=== PATIENT | male | born 1965 | race Caucasian/White ===

== ENCOUNTER 2018-01-20 21:57 | Observation (INO) | payer OTHER ==
[~2018-01-20 21:57] MED LIST: ISOVUE-370 76%-LOCM 1 ML ONE
--- NOTE | 2018-01-20 22:17 | CT ---
CT OF HEAD: Indication: Stroke, left sided weakness, visual disturbance. FINDINGS: There is no acute intracranial hemorrhage, mass effect, midline shift of ventriculomegaly. Minimal mu cosal thickening is seen within the paranasal sinuses. IMPRESSION: No acute intracranial hemorrhage or mass effect. Notification to the ER physician placed at 2213 hours 3-5-18. Code CR.
[2018-01-20 22:51] LABS: #Eosinphils 0.1 thou/uL (0.0-0.7); #Monocytes 0.8 thou/uL (0.11-0.59); #Neutrophils 5.2 thou/uL (1.40-6.50); %Basophils 0.3 % (0.0-1.0); %Eosinophils 1.4 % (0.0-10.0); %Lymphocytes 14.4 % (21.0-51.0); %Monocytes 11.1 % (0.0-10.0); %Neutrophils 72.9 % (42.0-75.0); Hemoglobin 13.5 g/dL (14.0-18.0); Mean Corpuscular Hemoglobin 32.5 pg (27.0-31.0); Mean Corpuscular Volume 98.4 fl (80.0-94.0); Mean Platelet Volume 7.2 fL (7.4-10.4); Platelet Count 180 thou/uL (130-400); RBC Distribution Width 11.3 % (11.5-14.5); Red Blood Cell (RBC) Count 4.17 mill/uL (4.70-6.10); White Blood Cell (WBC) Count 7.1 thou/uL (4.8-10.8)
[2018-01-20 22:58] LABS: INR-International Normal Ratio 1.1; Prothrombin Time 14.3 SEC (12.0-14.7)
[2018-01-20 23:04] LABS: ALT (SGPT) 25 U/L (8-55); AST (SGOT) 20 U/L (5-34); Albumin 3.7 g/dL (3.5-5.0); Alkaline Phosphatase 108 U/L (40-150); Anion Gap 9 mmol/L (10-20); BUN (Urea Nitrogen) 23 mg/dL (8.9-20.6); Bilirubin, Total 0.9 mg/dL (0.2-1.2); Calc. Creatinine Clearance 0 mL/min (70-130); Calcium 8.6 mg/dL (7.8-10.44); Carbon Dioxide 27 mmol/L (22-29); Chloride 108 mmol/L (98-107); Estimated GFR-MDRD 78; Globulin 2.4 g/dL (2.4-3.5); Glucose 86 mg/dL (70-105); Potassium 3.8 mmol/L (3.5-5.1); Protein, Total 6.1 g/dL (6.0-8.3); Sodium 140 mmol/L (136-145)
[2018-01-20 23:08] LABS: CKMB 0.4 ng/mL (0-6.6); Troponin I Less than 0.010 ng/mL (< 0.028)
--- NOTE | 2018-01-20 23:18 | CT ---
CT OF BRAIN WITH 3D VOLUME RENDERING CT OF NECK WITH 3D VOLUME RENDERING CTA OF BRAIN PERFUSION EVALUATION: Clinical history: Left sided weakness, new onset, visual disturbance. FINDINGS: CTA of the head and neck reveals no high grade stenosis or occlusion of the major arterial system. Th ere is mild plaque formation without hemodynamically significant stenosis. CT of brain reveals no significant perfusion defect to indicate significant ischemia either obvious p enumbra or completed infarction. There is incidental note of partially imaged mixed density oval structure at the medial right hemitho rax with associated linear densities. This may relate to post-surgical change of the alimentary canal although it is not likely on the basis of this exam. Correlate with surgical history. There is adjac ent ground glass opacity of the medial right upper lung zone. IMPRESSION: 1. No significant arterial stenosis or occlusion of the head and neck. 2. No significant penumbra or complete infarction by CT perfusion evaluation. 3. Telephone call with findings placed to ER physician, Nando Westfall, at 2238 hours, 3-5-18.
[2018-01-21] MEDS ORDERED: Acetaminophen 500 MG TAB ONE (00:09)
[2018-01-21] MEDS ORDERED: Clopidogrel Bisulfate 75 MG TAB ONE (00:51)
[2018-01-21] MEDS ORDERED: Enoxaparin Sodium 80 MG/0.8 ML SYRINGE ONE (00:51)
[2018-01-21] MEDS ORDERED: Sodium Chloride 0.9% 1,000 ML IV SCH (02:15)
[2018-01-21] MEDS ORDERED: hydrALAZINE 20 MG/ML VIAL SLOW IVP PRN (02:32)
[2018-01-21] MEDS ORDERED: Acetaminophen 325 MG TAB PO PRN (02:32)
[2018-01-21] MEDS ORDERED: Acetaminophen 650 MG Suppository PR PRN (02:32)
[2018-01-21 02:53] VITALS: BMI 22.8
--- NOTE | 2018-01-21 03:20 | HP ---
PRIMARY CARE PROVIDER: None. CHIEF COMPLAINT: Weakness. HISTORY OF PRESENT ILLNESS: Mr. Mary is a pleasant 52-year-old gentleman who was seen at [facility] on 01/21/2018. He reports that he was taking morphine until 3 days ago for the last year or so. He stopped morphine, cold turkey. He has been going through withdrawals. Yesterday, he went to use the restroom. After that, he was watching TV with his . He had difficulty seeing the TV. His reports that he was slumped to one side, conscious, but unresponsive. He reports that he was initially weak in both arms. 911 was called and he was found to be weak on the left side. He denies any chest pain or shortness of breath. He denies any fevers or chills. He reports that he had blurriness of vision, which has resolved. He also reports that his weakness has resolved. REVIEW OF SYSTEMS: The following complete review of systems was negative, unless otherwise mentioned in the HPI or below: Constitutional: Weight loss or gain, ability to conduct usual activities. Skin: Rash, itching. Eyes: Double vision, pain. ENT/Mouth: Nose bleeding, neck stiffness, pain, tenderness. Cardiovascular: Palpitations, dyspnea on exertion, orthopnea. Respiratory: Shortness of breath, wheezing, cough, hemoptysis, fever or night sweats. Gastrointestinal: Poor appetite, abdominal pain, heartburn, nausea, vomiting, constipation, or diarrhea. Genitourinary: Urgency, frequency, dysuria, nocturia. Musculoskeletal: Pain, swelling. Neurologic/Psychiatric: Anxiety, depression. Allergy/Immunologic: Skin rash, bleeding tendency. PAST MEDICAL HISTORY: Significant for esophageal cancer. PAST SURGICAL HISTORY: Significant for esophagectomy, carpal tunnel surgery, vasectomy, hernia surgery, and cholecystectomy. PSYCHIATRIC HISTORY: Depression. SOCIAL HISTORY: The patient is an ex-smoker. He denies alcohol use or recreational drug use. ALLERGIES: NONSTEROIDAL ANTI-INFLAMMATORY AGENTS. He describes anaphylaxis with ASPIRIN use. CURRENT MEDICATIONS: Include duloxetine 60 mg daily, Lyrica 100 mg 3 times a day. FAMILY HISTORY: No family history of premature coronary artery disease. PHYSICAL EXAMINATION: GENERAL: Mr. Mary is awake and alert, not in acute distress. VITAL SIGNS: Blood pressure is 114/70, pulse is 68. His breathing at rate of 18 and saturating 99% on room air. Temperature is 99.2 degrees Fahrenheit. EYES: No scleral icterus. No conjunctival pallor. ENT: Moist mucosal membranes. No oropharyngeal erythema or exudates. NECK: Supple, nontender, normal range of movement. Trachea is midline. RESPIRATORY: Accessory muscles of breathing are not active. Chest wall movements are symmetric bilaterally. LUNGS: Clear to auscultation without wheeze, rhonchi, or crepitations. CARDIOVASCULAR: S1 and S2 are heard, regular. LUNGS: Peripheral pulses palpable. No carotid bruit, no pericardial rub. ABDOMEN: Soft, nontender, bowel sounds heard. No hepatomegaly, no splenomegaly. NEUROLOGIC: Cranial nerves II through XII intact. No focal motor or sensory deficits. Power is 5/5 in all 4 extremities. Deep tendon reflexes are 2+, plantar reflexes downgoing bilaterally. Cerebellar exam unremarkable. MUSCULOSKELETAL: Power in the 4 extremities as described above. SKIN: No rashes or subcutaneous nodules. LYMPHATIC: No cervical lymphadenopathy. PSYCHIATRIC: Normal mood, normal affect, patient is oriented to person, place, and time. LABORATORY DATA: Mr. Mary's labs and investigations were reviewed. He had an electrocardiogram, which showed normal sinus rhythm, no ST changes to suggest an acute coronary artery syndrome. He also had CT scan of the brain, noncontrast, which did not show any acute intracranial abnormality. CT angiogram of the brain and neck did not show any significant arterial stenosis or occlusion of the head and neck. He has normal white count, macrocytic anemia with hemoglobin 13.5, normal platelet count, INR 1.1, normal sodium, normal potassium, elevated blood urea nitrogen of 23, normal creatinine and normal liver profile. Troponin I is normal. ASSESSMENT AND PLAN: Mr. Mary is a pleasant 52-year-old gentleman who was seen at [facility] on 01/21/2018. His problem list includes: 1. Weakness: Going by the description of left-sided weakness when EMS arrived , it is possible that Mr. Mary had transient ischemic attack. 2. Transient ischemic attack: Suspected. We will start patient on Plavix, given his history of allergy to ASPIRIN. We will check 2D echocardiogram. We will consult Neurology Service. 3. History of esophageal cancer, status post surgery and chemotherapy. Appears to be stable. Many thanks for allowing me to participate in Mr. Mary's care. LEVEL OF RISK: Moderate. LEVEL OF COMPLEXITY: Moderate. MTDD
[2018-01-21 05:44] LABS: #Eosinphils 0.1 thou/uL (0.0-0.7); #Lymphocytes 1.9 thou/uL (1.20-3.40); #Monocytes 0.6 thou/uL (0.11-0.59); #Neutrophils 3.6 thou/uL (1.40-6.50); %Basophils 0.1 % (0.0-1.0); %Eosinophils 1.9 % (0.0-10.0); %Lymphocytes 30.6 % (21.0-51.0); %Monocytes 9.5 % (0.0-10.0); %Neutrophils 57.9 % (42.0-75.0); Hemoglobin 13.7 g/dL (14.0-18.0); Mean Corpuscular HGB CONC 33.6 g/dL (32.0-36.0); Mean Corpuscular Hemoglobin 32.2 pg (27.0-31.0); Mean Corpuscular Volume 95.7 fl (80.0-94.0); Mean Platelet Volume 7.5 fL (7.4-10.4); Platelet Count 180 thou/uL (130-400); RBC Distribution Width 11.4 % (11.5-14.5); Red Blood Cell (RBC) Count 4.24 mill/uL (4.70-6.10); White Blood Cell (WBC) Count 6.2 thou/uL (4.8-10.8)
[2018-01-21 06:05] LABS: Anion Gap 12 mmol/L (10-20); BUN (Urea Nitrogen) 21 mg/dL (8.9-20.6); Calc. Creatinine Clearance 109 mL/min (70-130); Calcium 8.9 mg/dL (7.8-10.44); Carbon Dioxide 25 mmol/L (22-29); Cardiac Risk 2.9 (Less than 4.5); Chloride 109 mmol/L (98-107); Cholesterol 126 mg/dl (< 200 Desired); Estimated GFR-MDRD Greater than 90; Glucose 92 mg/dL (70-105); HDL Cholesterol 43 mg/dL (>60 Neg Risk); LDL Cholesterol, Calculated 70 mg/dL; Potassium 3.7 mmol/L (3.5-5.1); Sodium 142 mmol/L (136-145); Triglycerides 66 mg/dL (Less than 150)
[2018-01-21] MEDS ORDERED: Clopidogrel Bisulfate 75 MG TAB PO SCH (09:00)
[2018-01-21] MEDS ORDERED: Enoxaparin Sodium 40 MG/0.4 ML SYRINGE SC SCH (09:00)
[2018-01-21] MEDS ORDERED: FLU VACC QS2017-18 36 mo. & older 0.5 ML SYRINGE IM ONE (09:00)
[2018-01-21] MEDS ORDERED: Acetaminophen 500 MG TAB PO PRN (11:15)
[2018-01-21] MEDS ORDERED: Lidocaine 4% Topical Sol 50 ML BOT TOP SCH ×2 (13:15→21:00)
[2018-01-21] MEDS ORDERED: Pregabalin 50 MG CAP PO SCH ×2 (13:15→21:00)
[2018-01-21] MEDS ORDERED: Lidocaine 2% Jelly 5 ML TUBE TOP SCH ×2 (14:30→21:00)
--- NOTE | 2018-01-21 15:53 | MRI ---
MRI BRAIN WITHOUT CONTRAST: Date: 01/21/18 Multiplanar, multisequential imaging of brain obtained. HISTORY: TIA. Left-sided weakness. FINDINGS: Ventricles have normal size and position. No evidence of restricted diffusion. There is no evidence o f acute or subacute infarct. No significant white matter abnormality. No mass or edema. No evidence o f hemorrhage. Intracranial internal carotid arteries, vertebral arteries, and basilar arteries show flow-voids. Dur al venous sinuses appear patent. Paranasal sinuses appear clear. IMPRESSION: Unremarkable MRI of brain. No evidence of acute or subacute infarct identified. POS: [facility]
[2018-01-21 16:08] VITALS: BP 120/64; TEMP 97.9
--- NOTE | 2018-01-21 20:43 | CON ---
DATE OF CONSULTATION: 01/21/2018 CONSULTING PHYSICIAN: Hospitalist. IMPRESSION: Syncopal episode, likely secondary to morphine withdrawal. PLAN: The patient can be discharged home at your discretion. HISTORY OF PRESENT ILLNESS: Mr. Mary is a 52-year-old gentleman who has had a history of esophageal cancer. He has had some chronic pain related to rib injury from his prior surgery. He has been on morphine for about a year. 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 He decided a few days ago to just stop morphine cold . He has been going through withdrawals for the last few days, he had been having diarrhea and diaphoresis. He had gone to the bathroom and was headed back into the den, he started to have a fading out of his vision. He made it to a sitting pos ition and stayed there. His noted that he was very limitedly responsive. EMS arrived and he wa s brought into the hospital. He regained consciousness in the ambulance. There was no lateralized w eakness or numbness. It was noted that he was quite pale and his color returned as he regained aware ness. He had a CTA on admission to the emergency room. Nothing remarkable was found. His lab work was all in normal range. He has since had an MRI of the brain, which was unremarkable. He has not h ad any other syncopal episodes in the past. There is no history of seizures. ALLERGIES: NONSTEROIDALS. MEDICATIONS: List included morphine, Cymbalta, and Lyrica. SOCIAL HISTORY: No tobacco or alcohol use. FAMILY HISTORY: Noncontributory. REVIEW OF SYSTEMS: Otherwise, negative for headache, nausea, vomiting, vertigo, tremors or restlessn ess. PHYSICAL EXAMINATION: GENERAL: He is a healthy appearing middle-aged man, sitting up in the bed, in no acute distress. VITAL SIGNS: Blood pressure 120/64, pulse 64, respirations 18, temperature 97.9. HEENT: All in normal range. NEUROLOGIC: He is alert and appropriate. His speech is fluent and clear. Cranial nerves are intact . Motor exam shows no focal deficits. He does not have any tremor or restlessness. He has diminish ed sensation in his feet in a stocking distribution. LABORATORY STUDIES: Unremarkable CBC, coags, and chemistry panel. SUMMARY: Middle-aged man who has been going through withdrawals from his morphine. He had a syncopa l event while sitting up, which I think prolonged the duration of his symptoms. His workup neurologi luiza has been otherwise unremarkable. I do not see anything further that needs to be done. He can be discharged home at your discretion.
[2018-01-21] MEDS ORDERED: Atorvastatin Calcium 10 MG TAB PO SCH (21:00)
[2018-01-21] MEDS ORDERED: Lidocaine 4% Cream 5 GM TUBE w/ Tegaderm TOP SCH (21:00)
[2018-01-22] MEDS ORDERED: DULoxetine 60 MG CAP PO SCH (09:00)
--- NOTE | 2018-01-22 14:25 | DIS ---
DATE OF ADMISSION: 01/21/2018 DATE OF DISCHARGE: 01/21/2018 DISCHARGE DIAGNOSIS: Transient ischemic attack. SECONDARY DIAGNOSIS: History of severe esophageal cancer. HISTORY OF PRESENT ILLNESS/HOSPITAL COURSE: Mr. Mary is a 52-year-old man who presented to the [facility] room with extremity weakness. He reports he was taking morphine for 3 days before presenting a nd stopped cold turkey and went through some withdrawal. The day before he presented, he went to use the restroom and while watching television, he had difficulty seeing the screen. His then repo rted that he slumped to one side, was conscious, but not really responsive. Also, he had weakness in his bilateral upper extremities. They called 911 and he was then found to be weak on the left side. He denied chest pain, shortness of breath, fever or chills. He had some blurry vision which eventu ally resolved. At the emergency room, his labs were largely unremarkable. EKG showed normal sinus r hythm with no signs of acute ischemia. He had a CT scan of the brain without contrast, which did not show any intracranial abnormality. A CT angiogram of the brain and neck also did not show any signi ficant arterial stenosis or occlusion of the head and neck. His INR was normal and labs were largely unremarkable. Troponin was trended down to normal. He was then admitted for possible ischemic stro ke/TIA. While in the hospital, it was further investigated with an MRI of the brain done which showe d no evidence of acute or subacute infarct. He was also reviewed by Neurology and the assessment was no further investigation needs to be done and the patient could be discharged. Before he left, his symptoms had resolved and he was able to ambulate freely. DISCHARGE MEDICATIONS: Atorvastatin 10 mg at bedtime, Plavix 75 mg daily, acetaminophen 1000 mg ever y 4 hours as needed, morphine extended release 15 mg p.o. twice daily (the patient states he stopped taking medications two days before presenting), pregabalin 20 mg twice a day, duloxetine 60 mg daily, lidocaine 5% ointment apply topically twice a day. CONSULT: Neurology. PHYSICAL EXAMINATION: For a full physical examination, refer to today's history and physical. IMAGING: As stated in hospital course. CONDITION AT DISCHARGE: Stable and improved. PROCEDURES: None apart from imaging stated as above. DIET: Regular. CARE GOALS: He is to follow up with his primary care physician within 1 week of discharge. He is to ld to return to the emergency room if he experiences similar symptoms, chest pain, shortness of breat h, loss of consciousness or extremity weakness. ACTIVITY: To resume as tolerated. Discharge time 65 minutes including chart review and documentation.
--- NOTE | 2018-01-25 19:03 | EKG ---
Test Reason : STROKE Blood Pressure : / mmHG Vent. Rate : 069 BPM Atrial Rate : 069 BPM P-R Int : 128 ms QRS Dur : 086 ms QT Int : 386 ms P-R-T Axes : -30 045 018 degrees QTc Int : 413 ms Unusual P axis, possible ectopic atrial rhythm Abnormal ECG Confirmed by ARLEEN RAY, ROCÍO ([id number]), loan expeditor CRIS ZIMMER ([id number]) on 01/25/2018 7:02:26 PM Referred By: Confirmed By:ROCÍO BACON MD
== END 2018-01-21 18:29 | disposition home or self-care (01) ==
LOC: ERS 21:57 → 2SE 01-21 00:26
PROVIDERS: ADMIT Internal Medicine; ATTEND Internal Medicine
DX: G45.9 Transient cerebral ischemic attack, unspecified (principal); G62.89 Other specified polyneuropathies; G89.29 Other chronic pain; F32.9 Major depressive disorder, single episode, unspecified; Z88.6 Allergy status to analgesic agent; Z88.8 Allergy status to other drugs, medicaments and biological substances; Z79.899 Other long term (current) drug therapy; Z90.49 Acquired absence of other specified parts of digestive tract; Z98.890 Other specified postprocedural states; Z85.01 Personal history of malignant neoplasm of esophagus; Z92.21 Personal history of antineoplastic chemotherapy; Z87.891 Personal history of nicotine dependence
CPT/HCPCS: 0042T; 36415; 36416; 70450; 70496; 70498; 70551; 80048; 80053; 80061; 82553; 84484; 85025; 85610; 85730; 90471; 90682; 93005; 96372; G0008; G0378; J1650; J2001; Q2036

== ENCOUNTER 2018-11-17 11:34 | Emergency (ER) | payer OTHER ==
[2018-11-17 12:51] LABS: AST (SGOT) 28 U/L (5-34); Albumin Less than 1.0 g/dL (3.5-5.0); Anion Gap 18 mmol/L (10-20); Bilirubin, Total 2.4 mg/dL (0.2-1.2); Calc. Creatinine Clearance 0 mL/min (70-130); Calcium 8.3 mg/dL (7.8-10.44); Carbon Dioxide 15 mmol/L (22-29); Chloride 109 mmol/L (98-107); Estimated GFR-MDRD Greater than 90; Globulin 5.8 g/dL (2.4-3.5); Potassium 4.6 mmol/L (3.5-5.1); Protein, Total 6.8 g/dL (6.0-8.3); Sodium 137 mmol/L (136-145)
[2018-11-17 12:52] LABS: BUN (Urea Nitrogen) 4 mg/dL (8.4-25.7)
[2018-11-17] MEDS ORDERED: Acetaminophen 325 MG TAB ONE (13:03)
[2018-11-17 13:11] LABS: #Lymphocytes 0.3 thou/uL (1.20-3.40); #Monocytes 0.6 thou/uL (0.11-0.59); #Neutrophils 11.3 thou/uL (1.40-6.50); %Basophils 0.1 % (0.0-1.0); %Eosinophils 0.2 % (0.0-10.0); %Lymphocytes 2.2 % (21.0-51.0); %Monocytes 5.3 % (0.0-10.0); %Neutrophils 92.3 % (42.0-75.0); Hemoglobin 15.3 g/dL (14.0-18.0); Mean Corpuscular HGB CONC 33.6 g/dL (32.0-36.0); Mean Corpuscular Hemoglobin 32.3 pg (27.0-31.0); Mean Corpuscular Volume 96.1 fL (78.0-98.0); Mean Platelet Volume 7.5 fL (7.4-10.4); Platelet Count 186 thou/uL (130-400); RBC Distribution Width 11.2 % (11.5-14.5); Red Blood Cell (RBC) Count 4.73 mill/uL (4.70-6.10); White Blood Cell (WBC) Count 12.2 thou/uL (4.8-10.8)
--- NOTE | 2018-11-17 13:33 | CT ---
CT BRAIN: DATE: 11/17/2018. PROVIDED CLINICAL HISTORY: Syncope. FINDINGS: Comparison 01/20/2018. The ventricular system appears normal in size and morphology. There is no evidence for intracranial hemorrhage or mass effect. The extracranial soft tissues and osseous structures demonstrate an unrem arkable CT appearance. IMPRESSION: No evidence for intracranial hemorrhage or mass effect. POS: [facility]
--- NOTE | 2018-11-17 13:34 | CT ---
CT FACIAL BONES: DATE: 11/17/2018. PROVIDED CLINICAL HISTORY: Facial pain status post injury. FINDINGS: There is no evidence for a fracture. The globes and other orbital contents appear normal. Paranasal sinuses demonstrate no significant opacity. IMPRESSION: No evidence for a fracture. POS: [facility]
[2018-11-17] MEDS ORDERED: Lidocaine 1% (PF) 30 ML VIAL ONE (13:46)
[2018-11-17 14:20] LABS: Glucose 21 mg/dL (70-105)
--- NOTE | 2018-11-17 14:43 | RAD ---
LEFT HAND RADIOGRAPHS 3 VIEWS: FARZANA: 11/17/2018. PROVIDED CLINICAL HISTORY: Left hand pain status post injury. FINDINGS: There is no evidence for a fracture or other acute osseous abnormality. If there is persistent clini matheus concern, conservative management and followup imaging are advised. IMPRESSION: As above. POS: [facility]
--- NOTE | 2018-11-17 14:47 | RAD ---
LEFT HIP RADIOGRAPHS 2 VIEWS: DATE: 11/17/2018. PROVIDED CLINICAL HISTORY: Pain status post injury. FINDINGS: No evidence for a fracture or other acute osseous abnormality. If there is persistent clinical lizzy rn, conservative management and followup imaging advised. IMPRESSION: As above. POS: [facility]
--- NOTE | 2018-11-17 14:48 | RAD ---
PELVIC RADIOGRAPH: DATE: 11/17/2018. PROVIDED CLINICAL HISTORY: Pelvic pain status post injury. FINDINGS: No evidence for a fracture or other acute osseous abnormality. If there is persistent clinical lizzy rn, conservative management and followup imaging advised. IMPRESSION: As above. POS: [facility]
[2018-11-17 14:50] LABS: ALT (SGPT) 31 U/L (8-55); Alkaline Phosphatase 112 U/L (40-150)
[2018-11-17 16:00] LABS: Anion Gap 13 mmol/L (10-20); BUN (Urea Nitrogen) 21 mg/dL (8.4-25.7); Calc. Creatinine Clearance 0 mL/min (70-130); Calcium 8.1 mg/dL (7.8-10.44); Carbon Dioxide 20 mmol/L (22-29); Chloride 110 mmol/L (98-107); Estimated GFR-MDRD Greater than 90; Glucose 102 mg/dL (70-105); Potassium 3.9 mmol/L (3.5-5.1); Sodium 139 mmol/L (136-145)
== END 2018-11-17 16:20 | disposition home or self-care (01) ==
LOC: ERS 11:34
DX: T40.601A Poisoning by unspecified narcotics, accidental (unintentional), initial encounter (principal); S01.81XA Laceration without foreign body of other part of head, initial encounter; E86.0 Dehydration; R55 Syncope and collapse; F32.9 Major depressive disorder, single episode, unspecified; Z87.891 Personal history of nicotine dependence; X58.XXXA Exposure to other specified factors, initial encounter
CPT/HCPCS: 12013; 36415; 36416; 70450; 70486; 72170; 80053; 85025; 93005; 96360; 96361; J2001

== ENCOUNTER 2019-03-31 05:59 | Outpatient (CLI) | payer OTHER ==
[2019-03-31 10:39] LABS: Mean Corpuscular HGB CONC 34.5 g/dL (32.0-36.0); Mean Corpuscular Hemoglobin 32.5 pg (27.0-31.0); Mean Corpuscular Volume 94.2 fL (78.0-98.0); Mean Platelet Volume 7.4 fL (7.4-10.4); Platelet Count 245 thou/uL (130-400); Red Blood Cell (RBC) Count 4.63 mill/uL (4.70-6.10); White Blood Cell (WBC) Count 6.2 thou/uL (4.8-10.8)
[2019-03-31 10:41] LABS: Bilirubin Small (Negative); Blood, Urine Negative (Negative); Clarity CLEAR (Clear); Glucose, Urine (Dipstick) 100 mg/dL (Negative); Leukocyte Negative (Negative); Nitrite Negative (Negative); Protein, Urine (Dipstick) 30 mg/dL (Neg-Trace); Specific Gravity, Urine 1.043 (1.002-1.036); Urobilinogen 0.2 mg/dL (0.2-1.0)
[2019-03-31 10:43] LABS: Bacteria/HPF None Seen HPF (None Seen); Hyaline Casts/LPF 7-10 HYALINE CAST LPF (0-3 Hyaline); Pathc Cast-AUWi Flag 0.95 (0-2.49); Squamous Epithelial 0-3 HPF (0-3)
[2019-03-31 10:48] LABS: PTT 27.1 SEC (22.9-36.1); Prothrombin Time 13.5 SEC (12.0-14.7)
[2019-03-31 10:59] LABS: Anion Gap 12 mmol/L (10-20); BUN (Urea Nitrogen) 24 mg/dL (8.4-25.7); Calc. Creatinine Clearance 0 mL/min (70-130); Calcium 8.9 mg/dL (7.8-10.44); Carbon Dioxide 25 mmol/L (22-29); Chloride 107 mmol/L (98-107); Estimated GFR-MDRD 79; Glucose 61 mg/dL (70-105); Potassium 3.7 mmol/L (3.5-5.1); Sodium 140 mmol/L (136-145)
--- NOTE | 2019-03-31 16:57 | EKG ---
Test Reason : Blood Pressure : / mmHG Vent. Rate : 093 BPM Atrial Rate : 093 BPM P-R Int : 134 ms QRS Dur : 084 ms QT Int : 350 ms P-R-T Axes : 060 091 022 degrees QTc Int : 435 ms Normal sinus rhythm Rightward axis Borderline ECG When compared with ECG of 17-NOV-2018 11:42, No significant change was found Confirmed by DR. [place] CARLOS ([id number]) on 03/31/2019 4:56:25 PM Referred By: HAY Confirmed By:DR. India CARLOS
== END 2019-03-31 06:00 | disposition home or self-care (01) ==
LOC: LABBT 05:59
PROVIDERS: ATTEND Urology
DX: Z01.818 Encounter for other preprocedural examination (principal); N48.6 Induration penis plastica
CPT/HCPCS: 80048; 81001; 85027; 85610; 85730; 87086; 93005; 93010

== ENCOUNTER 2019-04-09 05:55 | Day surgery (SDC) | payer OTHER ==
[2019-03-31 10:27] VITALS: BMI 22.2
[2019-04-09] MEDS ORDERED: CEFAZOLIN 1 GM VIAL ONE (06:22)
[2019-04-09] MEDS ORDERED: Sodium Chloride 0.9% 100 ML ONE (06:22)
[2019-04-09] MEDS ORDERED: Bupivacaine 0.25% HCL 30 ML VIAL ONE (06:39)
[2019-04-09] MEDS ORDERED: Neomycin-Polymyxin 1 ML AMP ONE (06:39)
[2019-04-09] MEDS ORDERED: Sodium Chloride 0.9% 10 ML ONE (06:43)
[2019-04-09] MEDS ORDERED: Bacitracin Zinc Ointment 30 gm TUBE ONE (07:05)
[2019-04-09] MEDS ORDERED: HYDROcodone/Acetaminophen 5/325 mg Tablet ONE (12:07)
--- NOTE | 2019-04-09 15:49 | OP ---
DATE OF PROCEDURE: 04/09/2019 SERVICE: Urology. PREOPERATIVE DIAGNOSIS: Peyronie disease. POSTOPERATIVE DIAGNOSIS: Peyronie disease. PROCEDURE PERFORMED: Peyronie penile plication. INDICATION FOR PROCEDURE: Mr. Mary is a 53-year-old white male, who presented to me with angulation of the penis. After stabilization of curvature, he ended up with a 70-80 degree dorsal curvature. He was not happy with this and desired correction. Risks and benefits of Peyronie's plication were discussed and he has agreed to proceed forward. DESCRIPTION OF PROCEDURE: After identification of armband and verification of consent, the patient was brought to the operating room. He underwent general anesthesia with an LMA. He was prepped and draped in usual sterile fashion. After appropriate time-out, a dorsal penile nerve block was performed with 10 mL of 0.25% Marcaine plain. The Booth catheter was introduced into the bladder and the bladder drained and the Booth was clamped off. Incision was initially made on the ventral aspect of the penis over the site of maximal angulation. An artificial erection was performed with a tourniquet to identify the maximum point of angulation prior to the incision being made. Incision was carried down through the skin and through the dartos fascia using Bovie electrocautery, elevated over the urethra. Urethral tissues were then exposed and the dissection of the dartos was carried out laterally until the corpora cavernosum could be seen on both sides. Hemostasis was performed gently with bipolar cautery of any minor bleeding vessels. Once the field was fully exposed, another artificial erection was performed and again the maximal site of angulation was noted on the contralateral side. On the ventral aspect of the penis, the 16 dot plications were marked to correct the penis' angulation. 3-0 Vicryl sutures were placed through the previously marked plication points and after all sutures were placed, they were tied down. Repeat erection demonstrated complete resolution of the upward curvature but there was a minor left-sided curvature. One additional plication stitch was placed on the right lateral aspect of the penis gently to remove the curvature towards the left, which then resulted in a completely straight penis with erection. Satisfied, the patient should have a good cosmetic outcome. There appeared to be very minimal shortening of the penis. The tourniquet was removed and the edema removed from the penis. All the excessive suture material was trimmed and hemostasis was confirmed. The dartos was then reapproximated using a 3-0 Vicryl in a running fashion. The skin closed with a 4-0 Monocryl. Dermabond was applied. Once dry, a gentle Coban dressing was applied without excessive compression to avoid urinary retention or penile ischemia. The catheter was removed. The patient was then awakened, taken to PACU for recovery in stable condition. COMPLICATIONS: None. ESTIMATED BLOOD LOSS: Minimal. RETAINED TUBES AND DRAINS: None. SPECIMENS: None. DISPOSITION: The patient will be discharged home and follow up with me in approximately 1 to 2 weeks for postoperative check. Job ID: [id number]
== END 2019-04-09 12:30 | disposition home or self-care (01) ==
LOC: SDC 05:55 → EDSTATUS 10:00 → SDC 12:30
PROVIDERS: ATTEND Urology
PROC: 0VQS0ZZ Repair Penis, Open Approach (ICD-10-PCS; principal; 2019-04-09)
DX: N48.6 Induration penis plastica (principal); M19.90 Unspecified osteoarthritis, unspecified site; J30.9 Allergic rhinitis, unspecified; Z79.899 Other long term (current) drug therapy; Z88.6 Allergy status to analgesic agent; Z88.8 Allergy status to other drugs, medicaments and biological substances
CPT/HCPCS: J0690; J3490; S0020

== ENCOUNTER 2019-05-27 13:36 | Emergency (ER) | payer OTHER ==
[2019-05-27 14:33] LABS: #Eosinphils 0.1 thou/uL (0.0-0.7); #Monocytes 0.8 thou/uL (0.11-0.59); #Neutrophils 8.5 thou/uL (1.40-6.50); %Basophils 0.1 % (0.0-1.0); %Eosinophils 0.7 % (0.0-10.0); %Lymphocytes 9.3 % (21.0-51.0); %Monocytes 7.8 % (0.0-10.0); %Neutrophils 82.1 % (42.0-75.0); Mean Corpuscular HGB CONC 32.2 g/dL (32.0-36.0); Mean Corpuscular Hemoglobin 30.6 pg (27.0-31.0); Mean Corpuscular Volume 95.2 fL (78.0-98.0); Mean Platelet Volume 7.2 fL (7.4-10.4); Platelet Count 207 thou/uL (130-400); RBC Distribution Width 11.4 % (11.5-14.5); Red Blood Cell (RBC) Count 4.92 mill/uL (4.70-6.10); White Blood Cell (WBC) Count 10.3 thou/uL (4.8-10.8)
[2019-05-27 14:40] LABS: Bilirubin Negative (Negative); Blood, Urine Negative (Negative); Glucose, Urine (Dipstick) Negative (Negative); Leukocyte Negative (Negative); Nitrite Negative (Negative); Protein, Urine (Dipstick) Negative (Neg-Trace); Urobilinogen 0.2 mg/dL (Less than 2)
[2019-05-27 14:43] LABS: Clarity Clear (Clear)
[2019-05-27 14:49] LABS: Bacteria/HPF None Seen HPF (None Seen); RBC/HPF None Seen HPF (0-3); Squamous Epithelial None Seen HPF (0-3); WBC/HPF None Seen HPF (0-3)
[2019-05-27 15:00] LABS: ALT (SGPT) 26 U/L (8-55); AST (SGOT) 22 U/L (5-34); Albumin 4.2 g/dL (3.5-5.0); Alkaline Phosphatase 113 U/L (40-150); Anion Gap 13 mmol/L (10-20); BUN (Urea Nitrogen) 25 mg/dL (8.4-25.7); Calc. Creatinine Clearance 0 mL/min (70-130); Calcium 9.1 mg/dL (7.8-10.44); Carbon Dioxide 27 mmol/L (22-29); Chloride 101 mmol/L (98-107); Estimated GFR-MDRD 54; Globulin 2.6 g/dL (2.4-3.5); Glucose 92 mg/dL (70-105); Potassium 3.9 mmol/L (3.5-5.1); Protein, Total 6.8 g/dL (6.0-8.3); Sodium 137 mmol/L (136-145)
--- NOTE | 2019-05-27 15:09 | CT ---
CT ABDOMEN AND PELVIS WITHOUT CONTRAST: Multiple axial tomograms were obtained through the abdomen and pelvis without IV enhancement. INDICATION: Left flank pain. History of kidney stones. COMPARISON: There are no comparison studies. FINDINGS: Images through the lung bases reveal a fixed diaphragmatic hernia with a portion of the stomach above the diaphragm. There appear to be postoperative changes at the gastroesophageal junction and the st omach is small, possibly representing prior procedure. Recommend clinical correlation. There appear s to be mural thickening in the lower esophagus and this should be further evaluated with endoscopy. Liver, spleen, and pancreas unremarkable given the limitations of an unenhanced study. Adrenal glands normal. Review of the kidneys shows mild left hydronephrosis. Mild columning of the left ureter. There is a tiny calculus in the distal left ureter just proximal to the UVJ measuring in the 3 mm range. No calculus is seen in the right urinary system. Small bowel loops are normal caliber. IMPRESSION: 1. A 3 mm calculus distal left ureter producing mild obstructive change. 2. Fixed diaphragmatic hernia with evidence of postoperative changes at the stomach and the distal e sophagus. There is evidence of mural thickening. Recommend GI consultation and endoscopy to evaluat e the lower esophagus and stomach. POS: [facility]
[2019-05-27] MEDS ORDERED: Morphine 4 MG/ML VIAL ONE ×2 (15:48→17:48)
[2019-05-27] MEDS ORDERED: Ondansetron PF 4 MG/2 ML Vial ONE (15:49)
== END 2019-05-27 18:12 | disposition home or self-care (01) ==
LOC: ERS 13:36
DX: N13.2 Hydronephrosis with renal and ureteral calculous obstruction (principal); F32.9 Major depressive disorder, single episode, unspecified; Z79.891 Long term (current) use of opiate analgesic
CPT/HCPCS: 36415; 74176; 80053; 81003; 85025; 96361; 96374; 96375; 96376; J2270; J2405

== ENCOUNTER 2019-06-23 10:07 | Outpatient (CLI) | payer OTHER ==
[2019-06-23 11:31] LABS: Bacteria/HPF None Seen HPF (None Seen); Bilirubin Negative (Negative); Blood, Urine 1+ (Negative); Calcium Oxalate Crystals Rare HPF (None Seen); Clarity Clear (Clear); Glucose, Urine (Dipstick) 300 mg/dL (Negative); Leukocyte Negative Leu/uL (Negative); Nitrite Negative (Negative); Protein, Urine (Dipstick) 20 mg/dL (Neg-Trace); Squamous Epithelial 0-3 HPF (0-3); Urobilinogen Normal mg/dL (Less than 2); WBC/HPF 0-3 HPF (0-3)
--- NOTE | 2019-06-23 18:55 | EKG ---
Test Reason : Blood Pressure : / mmHG Vent. Rate : 066 BPM Atrial Rate : 066 BPM P-R Int : 134 ms QRS Dur : 084 ms QT Int : 392 ms P-R-T Axes : 060 084 055 degrees QTc Int : 410 ms Normal sinus rhythm Cannot rule out Anterior infarct , age undetermined Abnormal ECG When compared with ECG of 31-MAR-2019 10:19, No significant change was found Confirmed by MIKEY RAY, . SSteph ([id number]) on 06/23/2019 6:55:20 PM Referred By: HAY Confirmed By:DR. Luisana JENSEN MD
== END 2019-06-23 10:08 | disposition home or self-care (01) ==
LOC: LABBT 10:07
PROVIDERS: ATTEND Urology
DX: Z01.818 Encounter for other preprocedural examination (principal); N40.1 Benign prostatic hyperplasia with lower urinary tract symptoms
CPT/HCPCS: 81001; 87086; 93005; 93010

== ENCOUNTER 2019-06-25 11:23 | Day surgery (SDC) | payer OTHER ==
[2019-06-23 10:18] VITALS: BMI 21.5
[2019-06-25] MEDS ORDERED: Levofloxacin 500 mg/D5W 100 ml Premix Bag ONE (12:12)
[2019-06-25] MEDS ORDERED: Fentanyl 100 MCG/2 ML VIAL ONE ×2 (14:18→15:39)
[2019-06-25] MEDS ORDERED: Midazolam HCl 2 mg/2 ml Vial ONE (14:18)
--- NOTE | 2019-06-25 21:25 | OP ---
DATE OF PROCEDURE: 06/25/2019 SERVICE: Urology. PREOPERATIVE DIAGNOSIS: Left ureteral stone. POSTOPERATIVE DIAGNOSIS: Left ureteral stone. PROCEDURES PERFORMED: Left ureteroscopy, laser lithotripsy, basket extraction of stone, and placement of a 6 x 26 double-J stent. INDICATIONS FOR PROCEDURE: Mr. Mary is a 53-year-old white male, who previously had seen me for Peyronie disease. We had performed a Peyronie's plication, but in the postoperative period, he ended up having left flank pain. A CT demonstrated a distal left ureteral stone. He attempted at trial of passage, but after a month, the stone has not passed. He has elected to undergo ureteroscopy and removal of the stone. Risks and benefits have been discussed, and he has agreed to proceed forward. DESCRIPTION OF PROCEDURE: After identification of armband and verification of consent, the patient was brought back to the operating room, where he underwent general anesthesia with LMA. He was then placed in dorsal lithotomy position and prepped and draped in usual sterile fashion. After appropriate time-out, a lubricated 22-[place] rigid cystoscope was introduced per urethra into the bladder, and attention was turned toward the left ureteral orifice. There were no obvious mucosal abnormalities noted within the bladder. The left ureteral orifice was cannulated with a 0.035 Sensor wire up to the level of the renal pelvis. The cystoscope was used to empty the bladder and then removed. The Sensor wire was affixed to the drapes as a safety wire. A semi-rigid ureteroscope was then passed alongside the Sensor wire back into the bladder, and using a 1.9-[place] Zero Tip Nitinol basket to guide entry into the ureteral orifice, we were able to gain entry. The distal ureter was fairly tight and had to be gently dilated using the ureteroscope. Once we were past the dilated section, the ureter opened up quite widely, at which point, the stone was encountered. This would explain why the stone did not pass. The patient likely has a mild distal ureteral stricture. The stone was too big to be able to just simply pull out, so the basket was removed, and a 365-micron laser fiber was used to break the stone in approximately 2 to 3 pieces. The two dominant fragments were removed using basket extraction with a 1.9-[place] Zero Tip Nitinol basket. Repeat ureteroscopy back into the ureter did not demonstrate any additional fragments. The remaining 1 to 2 pieces probably came out on their own after the ureteroscope was removed for the 2 larger fragments. Ureteroscopy was performed all the way up to the mid ureter, and no additional stone fragments were found. Satisfied, the ureteroscope was removed, and the cystoscope was backloaded over the wire back into the bladder. A 6 x 26 double-J stent with a string attached was advanced over the Sensor wire up to the level of the renal pelvis. The wire was removed leaving a good curl in the kidney and a good curl in the bladder. The bladder was then emptied, and the cystoscope was removed. The patient had the string attached to the penis with an OpSite. He was then taken out of lithotomy, awakened, and taken to PACU for recovery in stable condition. COMPLICATIONS: None. ESTIMATED BLOOD LOSS: Minimal. RETAINED TUBES AND DRAINS: 6 x 26 double-J stent on the left. SPECIMEN: Stone for stone analysis. DISPOSITION: The patient will be discharged home and follow up with me in approximately 1 week for stent removal, after which time, we will work on stone prevention. Job ID: [id number]
[2019-06-30 15:10] LABS: CA Oxalate Monohydrate 92 % (.); Color Tan (.); Stone Weight 11.2 mg (.)
== END 2019-06-25 17:30 | disposition home or self-care (01) ==
LOC: SDC 11:23
PROVIDERS: ATTEND Urology
DX: N20.1 Calculus of ureter (principal); K22.70 Barrett's esophagus without dysplasia; Z88.6 Allergy status to analgesic agent; Z88.8 Allergy status to other drugs, medicaments and biological substances; Z79.899 Other long term (current) drug therapy
CPT/HCPCS: 76000; 82365; 88300; C1769; J1956; J2250; J3010

== ENCOUNTER 2022-07-03 11:17 | Outpatient (CLI) | payer OTHER | END 2022-07-03 11:18 | disposition home or self-care (01) | LOC: CT 11:17 | PROVIDERS: ATTEND Urology | DX: N20.1 Calculus of ureter (principal) | CPT/HCPCS: 74176 ==